=== PATIENT | female | born 2000 | race Caucasian/White ===

== ENCOUNTER → 2024-01-26 08:46 | Outpatient (BNVA) | payer OTHER, SELFPAY | PROVIDERS: PCP Internal Medicine; Visit Provider Physician Assistant Medical | DX: Z13.89 Encounter for screening for other disorder (principal) | CPT/HCPCS: 84450; 84460; 86706; 86803; 87389; 99202 ==

== ENCOUNTER 2024-10-06 08:48 | Outpatient (AMB) | payer OTHER, SELFPAY ==
--- NOTE | 2024-10-06 08:52 | A.OFFPC_ITS ---
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 Intake Note: New patient visit Orthotist Or Prosthetist Required: No Allergies No Known Allergies Allergy (Verified 10/06/24 08:52) Medication List - Last Reconciled 10/06/24 by Belen Hernandez PA-C multivitamin 1 tab PO DAILY Tobacco use date assessed: 10/06/24 Dental Screening Dental Screen Date: 10/06/24 Did you have a dental visit in the last 12 months?: Yes Did you have a dental problem in the last 6 months where you did not have access to dental care?: No Was dental information given to patient?: Patient has dentist 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 She denies any significant past medical history that she was diagnosed with but states that she does have a couple concerns. HEENT: Does suffer from seasonal allergies and states that her throat has been intermittently irritated in the morning and she thinks it is related to allergies. She does report some nasal congestion. She has tried Flonase a few times without significant improvement. No fever or chills. No ear pain, difficulty swallowing or swollen lymph nodes. GI: She states that for the last 2.5 years she has had intermittent rectal bleeding. She has rectal pain with bowel movements and the rectal bleeding but it is not all the time. She states it is a few times a month and can last a few days in a row. She thinks that she should see GI. She tried to make an appointment with our GI Department but needed a referral. She states that after she gave to her son they told her that she probably had internal hemorrhoids. She states that she wants to make sure that this is the only thing that is happening. She notices blood in the toilet bowl and with wiping but never in the stool itself. She has not have any abdominal pain, nausea, vomiting or diarrhea. It does seem like symptoms improve with running in particular. She thinks that it is possibly because the running makes the stool is a little softer. No family history of colorectal cancer Outside Plant Engineer: Has not seen [facility] OBG[facility] since checkup. She is not currently wishing to . She is interested in seeing our clerical administrator. Family hx: Maternal grandmother had cervical ca, Paternal grandmother had liver ca (etoh abuse). [facility] Surgical History (Updated 10/06/24 @ 09:08 by Peggy Heart CMA) No pertinent past surgical history Family History (Updated 10/06/24 @ 09:10 by Peggy Heart CMA) Maternal Grandmother Cervical cancer Paternal Grandmother Lung cancer Liver cancer Social History (Updated 10/06/24 @ 09:11 by Peggy Heart CMA) Housing: House Alcohol intake: current Comment: rarely Patient Tobacco Use Status: Never used Tobacco e-Cigarette/Vaping Use: Never Used Second Hand Smoke Exposure: No service: No Current occupational status: employed Current occupation: RN Current occupational exposures/hazards: No Cognitive needs: No Hearing needs: No Vision needs: Yes (contacts) Questionnaire PHQ-9 Over the last 2 weeks, how often have you been bothered by any of the following problems? 1. Little interest or pleasure in doing things: not at all 2. Feeling down, depressed, or hopeless: not at all 3. Trouble falling or staying asleep, or sleeping too much: not at all 4. Feeling tired or having little energy: not at all 5. Poor appetite or overeating: not at all 6. Feeling bad about yourself - or that you are a failure or have let yourself or your family down: not at all 7. Trouble concentrating on things, such as reading the newspaper or watching television: not at all 8. Moving or speaking so slowly that other people could have noticed. Or the opposite - being so fidgety or restless that you have been moving around a lot more than usual: not at all 9. Thoughts that you would be better off or of hurting yourself in some way: not at all Total score: 0 Depression Screening Interpretation: Negative Depression Screening Done: Yes 43812 - PHQ-9 Billing: Yes Source: Developed by Drs. Jeremie Cavazos, Sugar Chen, Khanh Alcaraz and colleagues, with an educational oscar from [employer]. Thrive Questionnaire Date Thrive assessed: 09/29/24 I am a: Patient What is your living situation today?: I have a steady place to live Within the past 12 months, did the food you bought not last and you didn't have the money to get more?: Never true Within the past 12 months, did you worry whether your food would run out before you got money to buy more?: Never true Do you have trouble paying for medicines?: No Do you have trouble getting transportation to medical appointments?: No Do you have trouble paying your heating and electricity bill?: No Do you have trouble taking care of your child, family member or friend?: No Do you have trouble with day-to-day activities such as bathing, preparing meals, shopping, managing finances, etc.?: No Are you currently unemployed and looking for a job?: No Are you interested in more education?: No Please select the resources that you would like help with: None Currently or been in a relationship where the following occur: No concerns reported THRIVE Score: 0 AUDIT C Alcohol Use Questionnaire (AUDIT-C) 1. How often do you have a drink containing alcohol?: Never 3. How often do you have six or more drinks on one occasion?: Never Total Score: 0 ABBY-7 AMB Questionnaire ABBY-7 Date ABBY - 7 assessed: 10/06/24 Feeling nervous, anxious, or on edge: 0 = Not at all Not being able to stop or control worryin = Not at all Worrying too much about different things: 0 = Not at all Trouble relaxin = Not at all Being so restless that it is hard to sit still: 0 = Not at all Becoming easily annoyed or irritable: 0 = Not at all Feeling afraid as if something awful might happen: 0 = Not at all Total ABBY-7 score (0-4 normal; 5-9 mild; 10-14 moderate; 15-21 severe): 0 Source: Developed by Drs. Jeremie Cavazos, Sugar Chen, Khanh Alcaraz and colleagues, with an educational oscar from [employer]. ABBY-7 Assessment Billing ABBY-7 Assessment Tool: ABBY-7 Assessment 09062 Physical exam (Primary Care) Vital Signs: Last Vital Signs Temp 98.4 F 10/06/24 09:04 Pulse 71 10/06/24 09:04 Resp 12 10/06/24 09:04 BP 109/67 10/06/24 09:04 Pulse Ox 100 10/06/24 09:04 Oxygen Delivery Method Room Air 10/06/24 09:04 BMI result Body Mass Index 23.1 Tobacco/Smoking Status: Tobacco use Status Tobacco use date assessed 10/06/24 10/06/24 08:53 Patient Tobacco Use Status Never used Tobacco 10/06/24 09:11 e-Cigarette/Vaping Use Never Used 10/06/24 08:53 PHQ-9: PHQ-9 Score PHQ-9: Total score 0 10/06/24 09:11 Depression Screening Interpretation: Negative Thrive Assessment: Date of Thrive Assessment Date Thrive assessed 09/29/24 10/06/24 08:53 Currently or been in a relationship where the following occur: No concerns reported Const Orientation/consciousness: patient oriented x3 HENMT Ears: hearing grossly normal bilaterally Neck Thyroid: Thyroid normal Lymphatic: no lymphadenopathy noted Resp Auscultation: clear to auscultation bilaterally Cardio Rate: regular rate Rhythm: regular rhythm Heart sounds: S1 normal heart sound present and S2 normal heart sound present GI Inspection: Yes normal to inspection Palpation (GI): Soft to palpation and Other GI palpation findings present (nontender, no cva tenderness) Auscultation: normoactive bowel sounds Rectal Exam - Female: deferred Skin General skin exam: no rashes or lesions noted Neuro General: patient oriented x3, gait normal and no focal motor deficits Coding Level of Care Code New Pt Level 3 (56528) Complex EM visit Add On G2211 Diagnoses Rectal bleeding K62.5 Allergic rhinitis J30.9 Additional Codes ABBY-7 Assessment Billing - ABBY-7 Assessment Tool: ABBY-7 Assessment 19807 ([id number]) PHQ-9 - 51282 - PHQ-9 Billing: Yes ([id number]) Assessment & Plan Assessment & Plan (1) Rectal bleeding: Code(s): K62.5 - Hemorrhage of anus and rectum Category: Medical Plan: Referral to GI. Labs ordered (2) Allergic rhinitis: Code(s): J30.9 - Allergic rhinitis, unspecified Category: Medical Plan: We will try Xyzal. Advised if continue with Flonase. Orders: Orders Complete Blood Count Auto Diff Today K62.5 - Hemorrhage of anus and rectum, Z00.00 - Encounter for general adult medical examination without abnormal findings, Z13.220 - Encounter for screening for lipoid disorders IRON PROFILE Today K62.5 - Hemorrhage of anus and rectum, Z00.00 - Encounter for general adult medical examination without abnormal findings, Z13.220 - Encounter for screening for lipoid disorders Lipid Panel Today K62.5 - Hemorrhage of anus and rectum, Z00.00 - Encounter for general adult medical examination without abnormal findings, Z13.220 - Encounter for screening for lipoid disorders UA CC w/rflx Micro + Cult Today K62.5 - Hemorrhage of anus and rectum, Z00.00 - Encounter for general adult medical examination without abnormal findings, Z13.220 - Encounter for screening for lipoid disorders Ferritin Today K62.5 - Hemorrhage of anus and rectum, Z00.00 - Encounter for general adult medical examination without abnormal findings, Z13.220 - Encounter for screening for lipoid disorders Comprehensive [place]. Panel Fast Today K62.5 - Hemorrhage of anus and rectum, Z00.00 - Encounter for general adult medical examination without abnormal findings, Z13.220 - Encounter for screening for lipoid disorders TSH reflex Free T4 Today K62.5 - Hemorrhage of anus and rectum, Z00.00 - Encounter for general adult medical examination without abnormal findings, Z13.220 - Encounter for screening for lipoid disorders Microalbumin, Random (w Creat) Today K62.5 - Hemorrhage of anus and rectum, Z00.00 - Encounter for general adult medical examination without abnormal findings, Z13.220 - Encounter for screening for lipoid disorders Referrals Gastroenterology Referral K62.5 - Hemorrhage of anus and rectum 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
--- OUTSIDE RECORDS SUMMARY | 2024-10-06 09:03 | XMS_ITS | Encounter Summary ---
Author Organization [facility] Address [address] [place] [address] Phone Care Team Providers Care Bacteriology Research Assistant Name Role Phone Carlita Spicer NP Primary Care Provider [phone] Encounter Details Date Type Department Care Team (Late st Contact Info) Description 01/04/2014 Medication Management [facility] [place] [facility] [address] [place] [address] Family Medicine, Physician [address] [place] [address] Social History Tobacco Use Types Packs/Day Years Used Date Smoking Tobacco: Never Assessed Comments Unknown Sex and Gender Information Value Date Recorded Sex Assigned at Not on file Legal Sex Female 6:22 PM EDT Gender Identity Not on file Sexual Orientation Straight 12/06/2018 12 :02 PM EDT documented as of this encounter Plan of Treatment Not on file documented as of this encounter Visit Diagnoses Not on filedocumented in this encounter Care Teams Bacteriology Research Assistant Relationship Specialty Start Date End Date Carlita Spicer NP [address] [place] [address] PCP - General Pediatrics 06/25/20 documented as of this encounter
[2024-10-06 09:04] VITALS: BP 109/67; PULSE 71; RESP 12; TEMP 36.9; O2SAT 100; BMI 23.1
== END 2024-10-06 09:59 | disposition home or self-care (01) ==
LOC: HO.HMCFM 08:48
PROVIDERS: PCP Physician Assistant; Visit Provider Physician Assistant
DX: K62.5 Hemorrhage of anus and rectum (principal); J30.9 Allergic rhinitis, unspecified

== ENCOUNTER → 2024-10-06 08:48 | Outpatient (BNVA) | payer OTHER, SELFPAY | PROVIDERS: PCP Physician Assistant; Visit Provider Physician Assistant | DX: K62.5 Hemorrhage of anus and rectum (principal); J30.9 Allergic rhinitis, unspecified | CPT/HCPCS: 96127 ==

== ENCOUNTER 2024-10-06 10:12 | Outpatient (REF) | payer OTHER, SELFPAY ==
[2024-10-06 14:14] LABS: MANUAL DIFF FLAG NO
[2024-10-06 14:25] LABS: Hematocrit 38.7 % (37.0-47.0); Hemoglobin 13.5 g/dl (12.0-16.0); Imm Gran Abs Auto 0.03 X10*3/uL (0.00-0.03); Imm Gran Pct Auto 0.4 % (0.0-0.4); Lymphocytes Absolute Auto 2.1 X10*3/uL (1.2-4.9); Mean Corpuscular HGB Conc 34.9 g/dl (31.0-35.0); Mean Corpuscular Hemoglobin 30.6 pg (27.0-33.0); Mean Corpuscular Volume 87.8 fL (80.0-98.0); NRBC Abs Auto 0.000 X10*3/uL (0.0-0.012); NRBC Pct Auto 0.0 /100WBC (0.0-0.2); Platelet Count 305 X10*3/uL (160-400); Red Blood Count 4.41 X10*6/uL (4.20-5.50); White Blood Count 7.8 X10*3/uL (4.8-10.8)
[2024-10-06 14:49] LABS: Alanine Aminotransferase 18 U/L (0-31); Albumin Level 4.6 g/dL (3.5-5.0); Alkaline Phosphatase 77 U/L (39-117); Anion Gap 11 (12-20); Aspartate Amino Transferase 23 U/L (5-31); Blood Urea Nitrogen 16 mg/dL (9-16); Calcium 9.3 mg/dL (8.4-10.2); Carbon Dioxide 26 mmol/L (22-29); Chloride 105 mmol/L (96-108); Cholesterol 168 mg/dL (<200); Estimated Glomerular Filt Rate > 60; HDL Cholesterol 47 mg/dL (>40); Iron 87 mcg/dL (30-160); Percent Iron Saturation 34 % (15-50); Potassium 4.0 mmol/L (3.3-5.1); Sodium 138 mmol/L (135-145); Total Iron Binding Capacity 255 mcg/dL (228-428); Total Protein 7.7 g/dL (6.5-8.0); Triglycerides 64 mg/dL (<150); Unsaturated Iron Binding 168 ug/dL
[2024-10-06 15:06] LABS: Ferritin 74 ng/mL (10-122)
[2024-10-06 17:52] LABS: Appearance Urine Clear; Glucose Urine UA Negative (Negative); PH 7.5 (5.0-9.0); Specific Gravity - Urine 1.010 (1.005-1.025); UMIC TRIGGER UACC YES
== END 2024-10-06 10:13 | disposition home or self-care (01) ==
LOC: HO.WFDLDS 10:12
PROVIDERS: Visit Provider Physician Assistant
DX: Z00.00 Encounter for general adult medical examination without abnormal findings (principal); Z13.220 Encounter for screening for lipoid disorders; K62.5 Hemorrhage of anus and rectum
CPT/HCPCS: 36415; 80053; 80061; 81001; 82570; 82728; 83540; 84443; 85025